=== PATIENT | male | born 1940 | race Caucasian/White ===

== ENCOUNTER 2017-11-02 10:35 | Inpatient (IN) ==
[2017-11-02] MEDS ORDERED: ONDANSETRON 4 MG/2 ML VIAL IV STA (12:12)
[2017-11-02] MEDS ORDERED: FUROSEMIDE 100 MG/10 ML VIAL IV STA (12:12)
[2017-11-02] MEDS ORDERED: cefTRIAXone 1,000 MG in SODIUM CHLORIDE 0.9% 100 ML IV STA (12:12)
[2017-11-02] MEDS ORDERED: MORPHINE 2 MG/1 ML SYRINGE IV STA (12:12)
[2017-11-02] MEDS ORDERED: ASPIRIN 325 MG TABLET PO STA (12:12)
[2017-11-02 12:21] LABS: Basophils # 0.1 10*3/uL (0.0-0.2); Basophils % 1.1 % (0.0-0.8); Eosinophils # 0.2 10*3/uL (0.0-0.87); Eosinophils % 2.5 % (0.00-10.9); Hematocrit 43.4 VOL% (42.0-52.0); Hemoglobin 14.1 GM/DL (14.0-18.0); Immature Granulocytes % 0.4 %; Immature Granulocytes Absolute 0.04 #; Lymphocytes % 10.4 % (21.2-54.2); Mean Corpuscular HGB Conc 32.5 GM/DL (32-36); Mean Corpuscular Hemoglobin 31 PG (27-34); Mean Corpuscular Volume 96.2 FL (87-102); Mean Platelet Volume 12.5 FL (9.6-12.0); Monocytes # 0.7 10*3/uL (0.11-0.8); Monocytes % 7.1 % (1.7-12.7); Neutrophils # 7.3 10*3/uL (1.4-7.4); Neutrophils % 78.5 % (38.7-73.9); Platelet Count 125 T/CUMM (130-400); Red Blood Count 4.51 MC/CUMM (3.8-5.5); Red Cell Distribution Width 14.8 % (9.3-17.3); White Blood Count 9.3 T/CUMM (4-12)
[2017-11-02] MEDS ORDERED: ASPIRIN 325 MG TABLET ONE (12:22)
[2017-11-02] MEDS ORDERED: cefTRIAXone 1,000 MG VIAL ONE (12:22)
[2017-11-02] MEDS ORDERED: FUROSEMIDE 100 MG/10 ML VIAL ONE (12:22)
[2017-11-02 12:27] LABS: INR 2.6
[2017-11-02 12:30] LABS: PT Patient Result 26.8 SECS
[2017-11-02] MEDS ORDERED: ALBUTEROL NEB SOLN 5 MG/ML 20 ML/BOTTLE RESP TX SCH (12:30)
[2017-11-02 12:34] LABS: Albumin 3.6 G/DL (3.4-5.0); Bilirubin,Total 1.7 MG/DL (0.2-1.0); Calcium 8.9 MG/DL (8.5-10.1); Magnesium 2.3 MG/DL (1.8-2.4); Osmolality,Calculated 285.1 MOS/KG (273-304); Potassium 3.6 MMOL/L (3.5-5.1); Total Protein 7.4 G/DL (6.4-8.3); Troponin I Only 0.018 NG/ML (0.00-0.045)
[2017-11-02 13:17] LABS: Apearance,Urine CLEAR (Clear); Bacteria,Urine Occasional /HPF (Few); Bilirubin,Urine Negative (Negative); Blood, Urine Negative (Negative); Glucose,Urine (UA) Negative (Negative); Ketones,Urine Negative (Negative); Mucus,Urine Occasional /LPF (Occasional); Nitrite,Urine Negative (Negative); Protein,Urine Negative; Urine Color Straw (Yellow); Urine Specific Gravity 1.005 (1.001-1.035); Urine Urobilinogen < 2.0 EU/DL (0.2-1.0); WBC,Urine 2 /HPF (0-6)
[2017-11-02] MEDS ORDERED: ACETAMINOPHEN 325 MG TABLET PO PRN (16:26)
[2017-11-02] MEDS ORDERED: ONDANSETRON 4 MG/2 ML VIAL IV PRN (16:26)
[2017-11-02] MEDS ORDERED: MORPHINE 2 MG/1 ML SYRINGE IV PRN (16:26)
[2017-11-02] MEDS ORDERED: ALBUTEROL/IPRATROPIUM 3 ML NEB RESP TX PRN (16:34)
[2017-11-03 06:24] LABS: Basophils # 0.1 10*3/uL (0.0-0.2); Eosinophils # 0.2 10*3/uL (0.0-0.87); Eosinophils % 2.8 % (0.00-10.9); Immature Granulocytes % 0.4 %; Immature Granulocytes Absolute 0.03 #; Lymphocytes # 0.8 10*3/uL (1.4-4.0); Lymphocytes % 10.4 % (21.2-54.2); Mean Corpuscular HGB Conc 32.6 GM/DL (32-36); Mean Corpuscular Hemoglobin 31 PG (27-34); Mean Corpuscular Volume 95.6 FL (87-102); Mean Platelet Volume 12.8 FL (9.6-12.0); Monocytes # 0.6 10*3/uL (0.11-0.8); Monocytes % 7.9 % (1.7-12.7); Neutrophils # 6.1 10*3/uL (1.4-7.4); Neutrophils % 77.5 % (38.7-73.9); Platelet Count 115 T/CUMM (130-400); Red Cell Distribution Width 14.6 % (9.3-17.3); White Blood Count 7.8 T/CUMM (4-12)
[2017-11-03 06:54] LABS: Calcium 8.6 MG/DL (8.5-10.1); Osmolality,Calculated 289.1 MOS/KG (273-304); Potassium 3.7 MMOL/L (3.5-5.1)
[2017-11-03] MEDS: PANTOPRAZOLE 40 MG TABLET PO SCH (09:04)
[2017-11-03] MEDS: rOPINIRole 0.25 MG TABLET PO SCH ×3 (09:04→22:17)
[2017-11-03] MEDS: busPIRone 10 MG TABLET PO SCH ×3 (09:04→22:18)
[2017-11-03] MEDS: ALLOPURINOL 100 MG TABLET PO SCH ×2 (09:04→22:18)
[2017-11-03] MEDS: LISINOPRIL 10 MG TABLET PO SCH (09:04)
[2017-11-03] MEDS: CARVEDILOL 12.5 MG TABLET PO SCH ×2 (09:04→22:17)
[2017-11-03] MEDS: FUROSEMIDE 80 MG TABLET PO SCH (09:04)
[2017-11-03] MEDS: POTASSIUM CITRATE 10 MEQ TABLET PO SCH ×2 (09:04→22:18)
[2017-11-03] MEDS ORDERED: cefTRIAXone 1,000 MG in SYRINGE 1 EACH IV SCH (12:00)
[2017-11-03] MEDS: DOXYCYCLINE HYCLATE 100 MG CAPSULE PO SCH ×2 (13:00→22:17)
[2017-11-03] MEDS ORDERED: FUROSEMIDE 40 MG TABLET PO SCH (17:00)
[2017-11-03] MEDS ORDERED: WARFARIN 7.5 MG TABLET PO SCH (18:00)
[2017-11-03] MEDS ORDERED: traZODone 50 MG TABLET PO SCH (21:00)
[2017-11-03] MEDS: cefTRIAXone 1,000 MG in SYRINGE 1 EACH IV SCH (22:18)
[2017-11-04] MEDS: rOPINIRole 0.25 MG TABLET PO SCH (09:14)
[2017-11-04] MEDS: LISINOPRIL 10 MG TABLET PO SCH (09:14)
[2017-11-04] MEDS: POTASSIUM CITRATE 10 MEQ TABLET PO SCH (09:14)
[2017-11-04] MEDS: busPIRone 10 MG TABLET PO SCH (09:14)
[2017-11-04] MEDS: CARVEDILOL 12.5 MG TABLET PO SCH (09:14)
[2017-11-04] MEDS: DOXYCYCLINE HYCLATE 100 MG CAPSULE PO SCH (09:14)
[2017-11-04] MEDS: PANTOPRAZOLE 40 MG TABLET PO SCH (09:14)
[2017-11-04] MEDS: ALLOPURINOL 100 MG TABLET PO SCH (09:14)
[2017-11-04] MEDS: FUROSEMIDE 80 MG TABLET PO SCH (09:14)
[2017-11-04] MEDS: cefTRIAXone 1,000 MG in SYRINGE 1 EACH IV SCH (09:15)
[2017-11-04 14:10] VITALS: BP 143/66
[2017-11-04] MEDS ORDERED: WARFARIN 5 MG TABLET PO SCH (18:00)
== END 2017-11-04 15:00 | disposition home health service (06) | DRG 195 ==
LOC: N.ED 10:35 → SUATTDRO 15:12 → N.EDINP 15:12 → N.5E 17:55
PROVIDERS: ADMIT Pediatrics; ATTEND Hospitalist

== ENCOUNTER 2020-12-26 08:51 | Inpatient (IN) ==
[2020-12-26] MEDS ORDERED: SODIUM CHLORIDE 0.9% 1,000 ML IV STA (09:22)
[2020-12-26] MEDS ORDERED: DIPHENOXYLATE/ATROPINE 2.5-0.025 MG TABLET PO STA (10:07)
[2020-12-26] MEDS ORDERED: ONDANSETRON 4 MG/2 ML VIAL IV ONE (10:07)
[2020-12-26 11:25] LABS: Basophils % 0.1 % (0.0-0.8); Hematocrit 40.4 VOL% (42.0-52.0); Hemoglobin 12.8 GM/DL (14.0-18.0); Immature Granulocytes % 0.6 %; Immature Granulocytes Absolute 0.06 #; Lymphocytes # 0.6 10*3/uL (1.4-4.0); Lymphocytes % 6.1 % (21.2-54.2); Mean Corpuscular HGB Conc 31.7 GM/DL (32-36); Mean Corpuscular Volume 96.7 FL (87-102); Mean Platelet Volume 13.2 FL (9.6-12.0); Monocytes % 11.2 % (1.7-12.7); NRBC # 0.04 10*3/uL; Platelet Count 158 T/CUMM (130-400); Red Blood Count 4.18 MC/CUMM (3.8-5.5); Red Cell Distribution Width 15.2 % (9.3-17.3); White Blood Count 9.5 T/CUMM (4-12)
[2020-12-26 11:47] LABS: PT Patient Result 110.8 SECS (9.8-11.9)
[2020-12-26 11:48] LABS: INR 11.8
[2020-12-26 11:49] LABS: Band Neutrophils 7 % (0-10); Hypochromasia Slight; Lymphocytes 8 % (20-55); Microcytosis 1+; Segmented Neutrophils 79 % (50-85); Total Cells Counted 100
[2020-12-26 11:50] LABS: Ovalocytes Few; Platelet Estimate Adequate
[2020-12-26 11:54] LABS: Alanine Aminotransferase < 9 U/L (16-61); Albumin 2.9 G/DL (3.4-5.0); Alkaline Phosphatase 136 U/L (45-117); Aspartate Amino Transferase 22 U/L (0-37); Blood Urea Nitrogen 93 MG/DL (7-18); Calcium 7.9 MG/DL (8.5-10.1); Carbon Dioxide 23 MMOL/L (21-32); Estimated Glom Filtration Rate 12 ML/MIN; Glucose 116 MG/DL (74-106); Osmolality,Calculated 295.4 MOS/KG (273-304); Potassium 5.4 MMOL/L (3.5-5.1); Sodium 133 MMOL/L (136-145); Total Protein 6.5 G/DL (6.4-8.2)
[2020-12-26 11:55] LABS: Bilirubin,Urine Negative (Negative); Blood, Urine Moderate mg/dL (Negative); Glucose,Urine (UA) Negative (Negative); Hyaline Casts,Urine 2 /LPF (0-3); Ketones,Urine 5 mg/dL (Negative); Mucus,Urine Occasional /LPF (Occasional); Nitrite,Urine Negative (Negative); Protein,Urine Negative; RBC,Urine 34 /HPF (0-4); Squamous Epithelial Cell,Urine Occasional /HPF (0-10); Urine Appearance Slightly Hazy (Clear); Urine Color Amber (Yellow); Urine Specific Gravity 1.019 (1.001-1.035); WBC,Urine 28 /HPF (0-6)
[2020-12-26] MEDS ORDERED: GLUCAGON 1 MG VIAL IM PRN (12:57)
[2020-12-26] MEDS ORDERED: DEXTROSE 50% 25 GM/50 ML VIAL IV PRN (12:57)
[2020-12-26] MEDS ORDERED: ONDANSETRON 4 MG/2 ML VIAL IV PRN (12:57)
[2020-12-26] MEDS ORDERED: ACETAMINOPHEN 325 MG TABLET PO PRN (12:57)
[2020-12-26] MEDS ORDERED: PHYTONADIONE 5 MG/5 ML ORAL.SYR PO ONE (13:03)
[2020-12-26] MEDS ORDERED: PIPERACILLIN/TAZOBACTAM 3,375 MG VIAL IV ONE (15:02)
[2020-12-26] MEDS ORDERED: SODIUM CHLORIDE 0.9% 100 ML IV ONE (15:03)
[2020-12-26] MEDS: PIPERACILLIN/TAZOBACTAM 3,375 MG in SODIUM CHLORIDE 0.9% 100 ML IV SCH (15:14)
[2020-12-26 17:21] LABS: Calcium 7.8 MG/DL (8.5-10.1); Osmolality,Calculated 303.7 MOS/KG (273-304); Potassium 4.8 MMOL/L (3.5-5.1)
[2020-12-26] MEDS: CARBIDOPA/LEVODOPA 25-100 MG TABLET PO SCH ×2 (18:14→21:05)
[2020-12-26] MEDS: busPIRone 10 MG TABLET PO SCH ×2 (18:14→21:05)
[2020-12-26] MEDS ORDERED: ALBUTEROL 2.5 MG/3 ML NEB RESP TX PRN (19:00)
[2020-12-26] MEDS: prednisoLONE ACETATE 1% OPH SUSP 5 ML BOTTLE BOTH EYES SCH ×2 (19:13→21:05)
[2020-12-26] MEDS: SODIUM CHLORIDE 0.9% 1,000 ML IV SCH ×2 (21:00→22:50)
[2020-12-26] MEDS: MEMANTINE 10 MG TABLET PO SCH (21:05)
[2020-12-26] MEDS: LATANOPROST 0.005% OPH SOLN 2.5 ML BOTTLE BOTH EYES SCH (21:05)
[2020-12-26] MEDS: BRIMONIDINE 0.2% OPH SOLN 5 ML BOTTLE BOTH EYES SCH (21:05)
[2020-12-27] MEDS: PIPERACILLIN/TAZOBACTAM 3,375 MG in SODIUM CHLORIDE 0.9% 100 ML IV SCH ×2 (05:15→16:24)
[2020-12-27 05:55] LABS: Basophils % 0.1 % (0.0-0.8); Eosinophils % 0.1 % (0.00-10.9); Hematocrit 34.8 VOL% (42.0-52.0); Hemoglobin 11.1 GM/DL (14.0-18.0); Immature Granulocytes % 0.6 %; Immature Granulocytes Absolute 0.05 #; Lymphocytes # 0.6 10*3/uL (1.4-4.0); Lymphocytes % 7.8 % (21.2-54.2); Mean Corpuscular HGB Conc 31.9 GM/DL (32-36); Mean Corpuscular Volume 96.1 FL (87-102); Mean Platelet Volume 13.3 FL (9.6-12.0); Monocytes % 11.9 % (1.7-12.7); Neutrophils % 79.5 % (38.7-73.9); Platelet Count 120 T/CUMM (130-400); Red Blood Count 3.62 MC/CUMM (3.8-5.5); Red Cell Distribution Width 15.2 % (9.3-17.3); White Blood Count 7.8 T/CUMM (4-12)
[2020-12-27 06:23] LABS: Alanine Aminotransferase < 6 U/L (16-61); Albumin 2.6 G/DL (3.4-5.0); Alkaline Phosphatase 117 U/L (45-117); Aspartate Amino Transferase 16 U/L (0-37); Blood Urea Nitrogen 101 MG/DL (7-18); Calcium 8.4 MG/DL (8.5-10.1); Carbon Dioxide 29 MMOL/L (21-32); Estimated Glom Filtration Rate 12 ML/MIN; Glucose 91 MG/DL (74-106); Osmolality,Calculated 304.8 MOS/KG (273-304); Potassium 4.4 MMOL/L (3.5-5.1); Sodium 137 MMOL/L (136-145); Total Protein 5.5 G/DL (6.4-8.2)
[2020-12-27 06:34] LABS: PT Patient Result 81.8 SECS (9.8-11.9)
[2020-12-27 06:36] LABS: INR 8.6
[2020-12-27] MEDS: busPIRone 10 MG TABLET PO SCH ×3 (10:41→21:08)
[2020-12-27] MEDS: MEMANTINE 10 MG TABLET PO SCH ×2 (10:41→21:07)
[2020-12-27] MEDS: CARBIDOPA/LEVODOPA 25-100 MG TABLET PO SCH ×4 (10:41→21:07)
[2020-12-27] MEDS: SODIUM CHLORIDE 0.9% 1,000 ML IV SCH ×2 (10:42→19:25)
[2020-12-27] MEDS: BRIMONIDINE 0.2% OPH SOLN 5 ML BOTTLE BOTH EYES SCH ×2 (10:43→21:22)
[2020-12-27] MEDS: prednisoLONE ACETATE 1% OPH SUSP 5 ML BOTTLE BOTH EYES SCH ×3 (10:43→18:59)
[2020-12-27] MEDS ORDERED: TUBERCULIN SKIN TEST 0.1 ML SYRINGE INTRADERM ONE (13:00)
[2020-12-27] MEDS: ZINC OXIDE PASTE 113 GM TUBE TOP SCH ×2 (15:14→23:28)
[2020-12-27] MEDS: LATANOPROST 0.005% OPH SOLN 2.5 ML BOTTLE BOTH EYES SCH (21:20)
[2020-12-28] MEDS: traZODone 50 MG TABLET PO PRN ×2 (01:07→20:54)
[2020-12-28 05:42] LABS: Basophils % 0.3 % (0.0-0.8); Eosinophils % 0.4 % (0.00-10.9); Hematocrit 32.7 VOL% (42.0-52.0); Hemoglobin 10.7 GM/DL (14.0-18.0); INR 3.4; Immature Granulocytes % 0.4 %; Immature Granulocytes Absolute 0.03 #; Lymphocytes # 0.6 10*3/uL (1.4-4.0); Lymphocytes % 7.5 % (21.2-54.2); Mean Corpuscular HGB Conc 32.7 GM/DL (32-36); Mean Corpuscular Volume 96.5 FL (87-102); Mean Platelet Volume 13.5 FL (9.6-12.0); Monocytes % 8.3 % (1.7-12.7); Neutrophils % 83.1 % (38.7-73.9); Platelet Count 98 T/CUMM (130-400); Red Blood Count 3.39 MC/CUMM (3.8-5.5); Red Cell Distribution Width 15.6 % (9.3-17.3); White Blood Count 7.6 T/CUMM (4-12)
[2020-12-28 05:47] LABS: Calcium 8.4 MG/DL (8.5-10.1); Potassium 3.9 MMOL/L (3.5-5.1)
[2020-12-28] MEDS: PIPERACILLIN/TAZOBACTAM 3,375 MG in SODIUM CHLORIDE 0.9% 100 ML IV SCH ×2 (05:50→15:19)
[2020-12-28] MEDS: SODIUM CHLORIDE 0.9% 1,000 ML IV SCH (06:00)
[2020-12-28 06:02] LABS: Platelet Estimate Decreased
[2020-12-28 06:03] LABS: Anisocytosis 2+; Macrocytosis 1+
[2020-12-28] MEDS: busPIRone 10 MG TABLET PO SCH ×3 (08:43→20:54)
[2020-12-28] MEDS: MEMANTINE 10 MG TABLET PO SCH ×2 (08:43→20:54)
[2020-12-28] MEDS: ZINC OXIDE PASTE 113 GM TUBE TOP SCH ×2 (08:43→20:54)
[2020-12-28] MEDS: CARBIDOPA/LEVODOPA 25-100 MG TABLET PO SCH ×4 (08:44→20:54)
[2020-12-28] MEDS: BRIMONIDINE 0.2% OPH SOLN 5 ML BOTTLE BOTH EYES SCH ×2 (08:50→20:54)
[2020-12-28] MEDS: prednisoLONE ACETATE 1% OPH SUSP 5 ML BOTTLE BOTH EYES SCH ×2 (08:51→20:54)
[2020-12-28] MEDS ORDERED: traZODone 50 MG TABLET PO PRN (09:32)
[2020-12-28] MEDS: DEXTROSE 5% NACL 0.45% 1,000 ML IV SCH ×3 (11:09→21:00)
[2020-12-28] MEDS: rOPINIRole 0.25 MG TABLET PO SCH ×2 (15:18→20:53)
[2020-12-28] MEDS: LATANOPROST 0.005% OPH SOLN 2.5 ML BOTTLE BOTH EYES SCH (20:54)
[2020-12-29 04:45] VITALS: BP 91/52
[2020-12-29 05:04] LABS: Basophils % 0.2 % (0.0-0.8); Eosinophils # 0.1 10*3/uL (0.0-0.87); Hematocrit 33.5 VOL% (42.0-52.0); Hemoglobin 10.6 GM/DL (14.0-18.0); Immature Granulocytes % 0.6 %; Immature Granulocytes Absolute 0.06 #; Lymphocytes # 0.6 10*3/uL (1.4-4.0); Mean Corpuscular HGB Conc 31.6 GM/DL (32-36); Mean Corpuscular Volume 97.7 FL (87-102); Mean Platelet Volume 13.4 FL (9.6-12.0); Monocytes % 8.1 % (1.7-12.7); Neutrophils % 84.1 % (38.7-73.9); Platelet Count 107 T/CUMM (130-400); Red Blood Count 3.43 MC/CUMM (3.8-5.5); Red Cell Distribution Width 15.4 % (9.3-17.3); White Blood Count 9.3 T/CUMM (4-12)
[2020-12-29 05:10] LABS: INR 2.3
[2020-12-29 05:25] LABS: Osmolality,Calculated 305.8 MOS/KG (273-304); Potassium 3.3 MMOL/L (3.5-5.1)
[2020-12-29] MEDS: PIPERACILLIN/TAZOBACTAM 3,375 MG in SODIUM CHLORIDE 0.9% 100 ML IV SCH (05:30)
[2020-12-29 06:23] LABS: PT Patient Result 23.9 SECS (9.8-11.9)
[2020-12-29 06:41] LABS: Microcytosis Slight; Platelet Estimate Decreased
== END 2020-12-29 06:56 | disposition expired | DRG 683 ==
LOC: EDBD → EDUNIT# → N.ED 08:51 → N.EDINP 15:05 → N.TELES 15:40
PROVIDERS: ADMIT Internal Medicine; ATTEND Internal Medicine